=== PATIENT | male | born 1995 ===

== ENCOUNTER → 2017-08-04 | Emergency (ER) | payer OTHER ==
[~2017-08-04] VITALS: Ht 167.6 cm; Wt 67.1 kg
[~2017-08-04] MED LIST: CORTISPORIN EAR10 M2 OT; PEPCID AC20 MG PO
== END | disposition home or self-care (01) ==
LOC: ER 12:52
DX: S93.491A Sprain of other ligament of right ankle, initial encounter (principal); X50.9XXA Other and unspecified overexertion or strenuous movements or postures, initial encounter; Y93.66 Activity, soccer; Y92.39 Other specified sports and athletic area as the place of occurrence of the external cause; Y99.8 Other external cause status